=== PATIENT | male | born 1965 | race Caucasian/White ===

== ENCOUNTER 2025-07-19 10:28 | Emergency (ER) | payer OTHER ==
[~2025-07-19] VITALS: Ht 172.7 cm; Wt 81.6 kg
[2025-07-19] MEDS: HYDROcodone/APAP 5/325 1 TAB TABLET PO ONE (12:06)
--- NOTE | 2025-07-19 12:20 | HMCIMG ---
EXAM: US Scrotum. CLINICAL HISTORY: swelling TECHNIQUE: Real-time ultrasound of the scrotum with color Doppler and image documentation. COMPARISON: None provided. FINDINGS: RIGHT TESTICLE: Normal in size (4.9 x 2.7 x 2.6 cm) and echogenicity, with no abnormal mass. Normal Doppler flow. LEFT TESTICLE: Normal in size (4.1 x 2.8 x 3 cm) and echogenicity, with no abnormal mass. Normal Doppler flow. EPIDIDYMIDES: The right epididymis is 8 x 14 mm, and the left epididymis is 7 x 4 mm. Within normal limits in size and vascularity The right epididymal cyst measures 3 x 4 mm, and the left epididymal cyst measures 2 x 1 mm. SCROTUM: Left groin non-reducible fat-containing hernia measuring 6.3 x 3.1 x 4 cm. History of left inguinal hernia repair. No hydrocele or varicocele seen. IMPRESSION: 1. No acute scrotal abnormality. 2. Left groin non-reducible fat-containing hernia measuring 6.3 x 3.1 x 4 cm. /[place]
[2025-07-19] MEDS ORDERED: KETO10TA2 PO (13:53)
--- NOTE | 2025-07-19 13:54 | ERN ---
ED Note History of Present Illness Stated Complaint: LEFT INGUINAL HERNIA Chief Complaint: Groin Pain Time Seen by MD: 10:38 Time Seen by Midlevel: 10:40 Dictation: 60-year-old male coming in with complaints of left groin pain for the past three days. Patient has has a history of bilateral inguinal hernia repairs done years ago. He reports that he has tried to reduce the hernia at home multiple times without success. Patient states that before he got the hernia repair he was able to reduce it at home and now is on able to. His primary symptom is pain and denies any difficulty urinating fever or any systemic symptoms. Allergies: Coded Allergies: No Known Allergies (Unverified Allergy, Unknown, 07/19/25) Past Medical History Past Medical History: Hypothyroid, Other Additional Past Medical Hx: NEROGENIC BLADDER, NEUROPATHY Surgical History: Other Surgical History Other: RT/ T INGUINAL HERNIA Review of System Dictation Constitutional: Negative for fever,chills, and weight loss Eyes: Negative for injury, pain,redness, and discharge ENT: Negative for injury,pain or swelling Cardiovascular: Negative for chest pain, palpitations, and edema Respiratory: Negative for shortness of breath, cough, and wheezing, Abdomen/GI: Negative for abdominal pain, nausea, vomiting, diarrhea, and constipation Back: Negative for injury and pain : Negative for injury, bleeding and discharge, left groin/scrotal pain MS/Extremity: Negative for injury and deformity Skin: Negative for rash, and discoloration Neuro: Negative for headache, weakness, numbness, tingling, and seizure Psych: Negative for suicide ideation, homicidal ideation, and hallucinations Review of Systems: was completed Initial Vital Sign VS Vital Signs Date Time Temp Pulse Resp B/P (MAP) Pulse Ox O2 Delivery O2 Flow Rate FiO2 07/19/25 10:29 98.1 80 16 123/75 97 Room Air 0 07/19/25 11:49 21 Physical Exam Dictation General: awake, alert, NAD Head/Face: Normocephalic, atraumatic Eyes: PERRL, EOMI, vision at baseline ENT: oral cavity clear, TMs clear, no signs of infection Neck: Trachea midline, supple, no nuchal rigidity Cardiovascular: RRR, normal S1/S2, No MRGs, no JVD Respiratory: CTAB, no respiratory distress, No rales or wheezes Abdomen: Soft, non-tender, non-distended, normal bowel sounds, no guarding or rebound. Skin: Warm, dry, normal turgor, no rash MS/Extremity: Pulses equal, no cyanosis, neurovascular intact, FROM Neuro: COAx4, GCS 15, strength 5/5, CN 2-12 intact, normal cerebellar exam, normal gait, Psych: Normal behavior, mood, and affect normal Left groin and scrotal assessed with a cager operator at bedside. There is a movable mass and swelling noted to the left inguinal area above the left testis. Results (Laboratory/Radiology) Labs Reviewed?: Yes Ultrasound Comment: [facility] [address] [place] [address] IMAGING REPORT Signed PATIENT: NERY DONOVAN MR#: [id number] : 1965 SEX: M AGE: 60 LOCATION: [facility] ORDER 110 STATUS: [facility] REPORT#: [id number] SERVICE [id number] REASON: swelling ORDERING PHYSICIAN: GARRET CHILDERS CNP PROCEDURE: SCROTUM - US SCROTUM & CONTENTS EXAM: US Scrotum. CLINICAL HISTORY: swelling TECHNIQUE: Real-time ultrasound of the scrotum with color Doppler and image documentation. COMPARISON: None provided. FINDINGS: RIGHT TESTICLE: Normal in size (4.9 x 2.7 x 2.6 cm) and echogenicity, with no abnormal mass. Normal Doppler flow. LEFT TESTICLE: Normal in size (4.1 x 2.8 x 3 cm) and echogenicity, with no abnormal mass. Normal Doppler flow. EPIDIDYMIDES: The right epididymis is 8 x 14 mm, and the left epididymis is 7 x 4 mm. Within normal limits in size and vascularity The right epididymal cyst measures 3 x 4 mm, and the left epididymal cyst measures 2 x 1 mm. SCROTUM: Left groin non-reducible fat-containing hernia measuring 6.3 x 3.1 x 4 cm. History of left inguinal hernia repair. No hydrocele or varicocele seen. IMPRESSION: 1. No acute scrotal abnormality. 2. Left groin non-reducible fat-containing hernia measuring 6.3 x 3.1 x 4 cm. /[place] DICTATED BY: KARL BRENNAN Jr., MD DATE: 07/19/251319 ELECTRONICALLY SIGNED BY: KARL BRENNAN Jr., MD DATE: 07/19/25 132 ED Course ED Course Orders Procedure Category Date Status Time Us Scrotum & Contents US 07/19/25 Resulted 11:04 Hydrocodone/Apap PHA 07/19/25 Complete 5/325 ([place] 5/325mg) 11:30 Current Medications Medications (Trade) Dose Ordered Sig/Cesar Route PRN Reason Start Time Stop Time Status Last Admin Dose Admin Acetaminophen/ Hydrocodone Bitart (NORco 5/325MG) 1 tab ONCE ONCE PO 07/19/25 11:30 07/19/25 11:31 DC 07/19/25 12:06 Vital Signs Date Time Temp Pulse Resp B/P (MAP) Pulse Ox O2 Delivery O2 Flow Rate FiO2 07/19/25 11:49 98.6 66 18 121/83 97 Room Air* 0 21 07/19/25 10:29 98.1 80 16 123/75 97 Room Air 0 Medical Decision Making MDM MDM: 60-year-old male coming in with complaints of left groin pain for the past three days. Patient has has a history of bilateral inguinal hernia repairs done years ago. He reports that he has tried to reduce the hernia at home multiple times without success. Patient states that before he got the hernia repair he was able to reduce it at home and now is on able to. His primary symptom is pain and denies any difficulty urinating fever or any systemic symptoms. Ultrasound is showing a no scrotal abnormality, left groin non reducible fat containing hernia measuring 6 x 3 x 1 cm. Attempted to reduce patient's hernia at bedside, unsuccessful. Discussed with the patient that he needs to follow up outpatient with a general surgeon as he might need surgical intervention. Educ ated on red flag symptoms of when to return back to the ER like severe pain, nausea, vomiting . Patient verbalized understanding. Differential diagnosis: Incarcerated hernia, fat containing hernia, Rationale: Tests considered and ordered secondary to shared decision making include: Previous outside records reviewed: Old ER visits. Risk of complication and/or morbidity or mortality of patient management: None Medications-Per medication reconciliation Need for hospitalization: Patient does not meet criteria for hospitalization. Need for emergency major/minor surgery: No There are no social concerns with this patient. Prescription drug management Prescriptions will include symptomatic care Patient's prior external medical records from other ER visits were reviewed by me as indicated. Prior testing and results from previous visits were reviewed. Prior tests were taken into account with medical decision making and resource utilization, independent historian/historians were used to obtain complete medical history. I independently interpreted the test that were performed, results were reviewed by me and considered findings on radiology if ordered. Medical management and examination interpretation discussions were had by me with other qualified healthcare professionals as indicated for the patient's care. DX & DISP Disposition: Discharge Departure Impression: Primary Impression: Hernia, inguinal, left Condition: Stable Scripts Ketorolac Tromethamine (Ketorolac Tromethamine) 10 Mg Tablet 1 TAB PO Q6HPRN PRN for pain for 3 Days, #12 TAB 0 Refills Prov: GARRET CHILDERS CNP 07/19/25 Additional Instructions: Follow up with the general surgeon in 1-2 days. Return to the hospital if you develop severe abdominal pain, nausea, vomiting. Referrals: SELF,REFERRAL (PCP) JERMAINE CANNON MD Time of Disposition: 13:52 I have reviewed the case, and I agree with, Diagnosis and Plan GARRET CHILDERS CNP Jul 19, 2025 13:54
[2025-07-19 13:57] VITALS: BP 120/83; PULSE 60; RESP 17; TEMP 98.2; O2SAT 98
== END 2025-07-19 14:10 | disposition home or self-care (01) ==
LOC: EDH 10:28
DX: K40.90 Unilateral inguinal hernia, without obstruction or gangrene, not specified as recurrent (principal); E03.8 Other specified hypothyroidism
CPT/HCPCS: 76870; 99284